=== PATIENT | female | born 1945 | race Caucasian/White ===

== ENCOUNTER 2024-10-14 08:01 | Day surgery (SDC) | payer MEDICARE ==
[2024-10-14] MEDS ORDERED: BUPIVACAINE 0.5% VIAL IJ ONE (08:02)
[2024-10-14] MEDS ORDERED: Depo-Medrol 40 MG/ML IM ONE (08:02)
[2024-10-14] MEDS ORDERED: propofoL IV ONE (10:04)
--- NOTE | 2024-10-14 11:31 | XRAY ---
Indication: Bilateral L4-S1 MBB. Intraoperative fluoroscopy provided for 15 seconds. Single digital spot image submitted for interpretation demonstrates posterior needle tips projecting over expected left and right L4-S1 nerve roots. Correlate with intraoperative findings/report.
--- NOTE | 2024-10-14 12:13 | XRAY ---
15 seconds of fluoroscopy used in surgery for a bilateral L4-S1 MBB.
== END 2024-10-14 10:35 | disposition home or self-care (01) ==
LOC: SDC-PAIN 08:01
PROVIDERS: ATTEND Psychiatry & Neurology Pain Medicine
DX: M47.816 Spondylosis without myelopathy or radiculopathy, lumbar region (principal); E11.9 Type 2 diabetes mellitus without complications
CPT/HCPCS: 64493; 64494; 72020; 82947; 93005; J2704

== ENCOUNTER 2025-02-04 07:00 | Day surgery (SDC) | payer MEDICARE | END 2025-02-04 09:47 | disposition home or self-care (01) | LOC: SDC-PAIN 07:00 | PROVIDERS: ATTEND Psychiatry & Neurology Pain Medicine | DX: Z53.8 Procedure and treatment not carried out for other reasons (principal) ==

== ENCOUNTER → 2025-02-04 | Day surgery (SDC) | payer MEDICARE ==
[~2025-02-04] MED LIST: BUPIVACAINE 0.5% VIAL IJ ONE; Depo-Medrol 40 MG/ML IM ONE; Lactated Ringers 1,000 ML IV ONE; propofoL IV ONE
--- NOTE | 2025-02-04 10:33 | XRAY ---
Indication: Right L4-S1 RFA. Intraoperative fluoroscopy provided for 17 seconds. 3 digital spot images submitted for interpretation demonstrates posterior needle tips projecting over expected right L4-S1 nerve roots. Correlate with intraoperative findings/report.
--- NOTE | 2025-02-04 10:35 | XRAY ---
17 seconds of fluoroscopy was used in surgery for a right L4-S1 RFA.
== END ==
LOC: SDC-PAIN 07:00
PROVIDERS: ATTEND Psychiatry & Neurology Pain Medicine
DX: M47.817 Spondylosis without myelopathy or radiculopathy, lumbosacral region (principal); E11.9 Type 2 diabetes mellitus without complications